=== PATIENT | female | born 1960 ===

== ENCOUNTER 2017-12-07 07:47 | Day surgery (SDC) | payer OTHER ==
[~2017-12-07 07:47] MED LIST: AMOXICILLIN500 M1; ANTI-GAS180 MG; COZAAR100 MG; LEVSIN0.125 MG PO
== END 2017-12-07 15:00 | disposition home or self-care (01) ==
LOC: AMB-ENDOS 07:47
DX: K29.50 Unspecified chronic gastritis without bleeding (principal); K21.9 Gastro-esophageal reflux disease without esophagitis

== ENCOUNTER → 2018-11-22 | Day surgery (SDC) | payer OTHER | END | disposition home or self-care (01) | LOC: ADM 11-13 15:00 → AMB-ENDOS 08:17 | DX: D12.4 Benign neoplasm of descending colon (principal); K57.32 Diverticulitis of large intestine without perforation or abscess without bleeding; K64.1 Second degree hemorrhoids ==